=== PATIENT | female | born 1960 | race Caucasian/White ===

== ENCOUNTER 2023-06-10 11:00 | Outpatient (CLI) | payer OTHER ==
--- NOTE | 2023-06-10 17:33 | XRAY Report ---
PROCEDURE: Wrist 4 View RT INDICATIONS: WRIST PAIN, RIGHT TECHNIQUE: 4 views of the wrist were acquired. COMPARISON: None. FINDINGS: Bones: No fractures or dislocations. Osteoarthritic changes are noted throughout right wrist most no tably at first CMC joint and scaphotrapezial joint No suspicious bony lesions. Soft tissues: No suspicious soft tissue calcifications or masses. IMPRESSION: No acute bony abnormality. Moderate right wrist joint osteoarthritis as above. Reviewed by: Srini Varghese MD on 06/10/2023 5:31 PM PDT Approved by: Srini Varghese MD on 06/10/2023 5:31 PM PDT Station ID: [id number]
== END 2023-06-10 23:59 | disposition home or self-care (01) ==
LOC: DI.N 11:00
PROVIDERS: ATTEND Family Medicine
DX: M19.031 Primary osteoarthritis, right wrist (principal)

== ENCOUNTER 2024-01-15 11:01 | Outpatient (CLI) | payer OTHER ==
--- NOTE | 2024-01-15 12:19 | XRAY Report ---
PROCEDURE: Chest 2V INDICATIONS: SHORTNESS OF BREATH TECHNIQUE: 2 views of the chest were acquired. COMPARISON: None. FINDINGS: Surgical changes and devices: None. Lungs and pleura: No pleural effusions or pneumothorax. Lungs are clear. Mediastinum: Mediastinal contours appear normal. Heart size is normal. Bones and chest wall: No suspicious bony lesions. Overlying soft tissues appear unremarkable. IMPRESSION: No acute cardiopulmonary process. Reviewed by: Khloe Yarbrough MD on 01/15/2024 12:17 PM PDT Approved by: Khloe Yarbrough MD on 01/15/2024 12:17 PM PDT Station ID: [id number]
== END 2024-01-15 11:02 | disposition home or self-care (01) ==
LOC: DI.N 11:01
PROVIDERS: ATTEND Family Medicine
DX: R06.02 Shortness of breath (principal)

== ENCOUNTER 2024-01-20 14:45 | Outpatient (CLI) | payer OTHER ==
--- NOTE | 2024-01-20 17:08 | Ultrasound Report ---
PROCEDURE: Pelvic w/Transvaginal INDICATIONS: VAGINAL SPOTTING TECHNIQUE: Real-time scanning was performed of the pelvic organs, with image documentation. Additional endovagi nal scanning was necessary due to incomplete visualization of the adnexal and endometrial structures by transabdominal scanning. COMPARISON: None. FINDINGS: Uterus: Uterus is anteverted and normal in size at 7.3 x 3.1 x 4.9 cm. The myometrium is homogeneou s. The endometrium measures 1.2 mm in combined thickness. Small incidental left anterior subserosal fibroid measuring 1.4 cm in maximum diameter. Ovaries: The right ovary measures 1.2 x 1.2 x 0.9 cm, with a calculated ovarian volume of 0.7 cc. T he left ovary measures 1.1 x 1.4 x 1.2 cm, with a calculated ovarian volume of 0.9 cc. The ovaries h ave a normal sonographic appearance. Normal postmenopausal appearance. No adnexal masses. Other: No pathologic free abdominal or pelvic fluid. IMPRESSION: Unremarkable pelvic ultrasound in a postmenopausal female. Thin endometrium. Reviewed by: Piyush Rich MD on 01/20/2024 5:07 PM PDT Approved by: Piyush Rich MD on 01/20/2024 5:07 PM PDT Station ID: [id number]
== END 2024-01-20 14:46 | disposition home or self-care (01) ==
LOC: DI 14:45
PROVIDERS: ATTEND Family Medicine
DX: N93.9 Abnormal uterine and vaginal bleeding, unspecified (principal)